=== PATIENT | female | born 1935 | race Caucasian/White ===

== ENCOUNTER → 2018-04-21 | Outpatient (CLI) | payer MEDICARE, OTHER | END | disposition home or self-care (01) | LOC: CFH 11:39 → EDSTATUS 12:00 | PROVIDERS: ATTEND Internal Medicine Cardiovascular Disease | DX: I08.1 Rheumatic disorders of both mitral and tricuspid valves (principal); I10 Essential (primary) hypertension; Z87.891 Personal history of nicotine dependence; Z85.6 Personal history of leukemia | CPT/HCPCS: 93306 ==

== ENCOUNTER 2018-08-03 19:04 | Inpatient (IN) | payer MEDICARE, OTHER ==
[~2018-08-03] VITALS: Ht 162.6 cm; Wt 67.6 kg
[2018-08-03] MEDS ORDERED: SODIUM CHLORIDE FLUSH 10ML SYR IVF ONE ×2 (19:30→20:30)
[2018-08-03] MEDS ORDERED: AMIO200T42 PO (19:33)
[2018-08-03] MEDS ORDERED: D3 (19:39)
[2018-08-03] MEDS ORDERED: FISH OIL (19:39)
[2018-08-03] MEDS ORDERED: VERA240T86 PO (19:39)
[2018-08-03] MEDS ORDERED: ATOR10TA9 PO (19:39)
[2018-08-03] MEDS ORDERED: NIAC500T9 PO (19:39)
[2018-08-03] MEDS ORDERED: WARF2TAB99 PO (19:39)
[2018-08-03] MEDS ORDERED: FURO20TA3 PO (19:39)
[2018-08-03] MEDS ORDERED: POTASSIUM CL ER PO (19:39)
[2018-08-03] MEDS ORDERED: [UNRECOGNIZED DRUG - OTHER] (19:39)
[2018-08-03] MEDS ORDERED: METO-99 PO (19:39)
[2018-08-03 19:56] LABS: INTERNATIONAL NORMALIZED RATIO 1.76 (0.93-1.1); PROTHROMBIN TIME 18.1 Seconds (9.6-11.5)
[2018-08-03 20:01] LABS: ALANINE AMINOTRANSFERASE 137 U/L (12-78); ALBUMIN 3.2 g/dL (3.4-5.0); ANION GAP 8 mmol/L (5-15); CHLORIDE 102 mmol/L (98-107); CREATININE 1.81 mg/dL (0.55-1.02)
[2018-08-03 20:05] LABS: ALKALINE PHOSPHATASE 121 U/L (45-117); BILIRUBIN,TOTAL 0.8 mg/dL (0.2-1.0); TOTAL PROTEIN 6.2 g/dL (6.4-8.2); TROPONIN I < 0.015 ng/mL (0.000-0.045)
[2018-08-03 20:21] LABS: MEAN CORPUSCULAR HEMOGLOBIN 31.3 pg (27.0-34.8); MEAN CORPUSCULAR HGB CONC 32.8 g/dL (32.4-35.8); MEAN CORPUSCULAR VOLUME 95.5 fL (80-100); MEAN PLATELET VOLUME 8.5 fL (7.4-10.4); PLATELET COUNT 190 x10^3/uL (130-400); RED BLOOD COUNT 4.54 x10^6/uL (3.82-5.3); RED CELL DISTRIBUTION WIDTH 17.5 % (9.6-15.2)
[2018-08-03 20:23] LABS: MD YES
[2018-08-03 20:24] LABS: LYMPH#(MANUAL) 83.81 x10^3/uL (1-3.4); LYMPHS% (MANUAL) 92 % (22-44); MONOS#(MANUAL) 0.91 x10^3/uL (0.3-2.7); MONOS% (MANUAL) 1 % (2-9); SEG#(MANUAL) 6.38 x10^3/uL (1.8-6.8); SEGS% (MANUAL) 7 % (42-75)
[2018-08-03 20:31] LABS: <PLATELET ESTIMATE> ADEQUATE; <PLT MORPHOLOGY> NORMAL PLT MORPH; <RBC MORPHOLOGY> NORMAL
[2018-08-03] MEDS ORDERED: SODIUM BICARB 8.4%, 50ML SYRINGE ONE (21:21)
[2018-08-03] MEDS ORDERED: DEXTROSE 50%, 50ML SYRINGE ONE (21:21)
[2018-08-03] MEDS ORDERED: CALCIUM CHLORIDE 10%, 10ML SYR ONE (21:21)
[2018-08-03] MEDS ORDERED: FUROSEMIDE 40 MG/4 ML ONE (21:21)
[2018-08-03] MEDS ORDERED: CALCIUM CHLORIDE 10%, 10ML SYR IVPush ONE (21:30)
[2018-08-03] MEDS ORDERED: INSULIN REGULAR 100 UNITS/ML, 3ML VIAL IVPush ONE (21:30)
[2018-08-03] MEDS ORDERED: DEXTROSE 50%, 50ML SYRINGE IVPush ONE (21:30)
[2018-08-03] MEDS ORDERED: SODIUM BICARB 8.4%, 50ML SYRINGE IVPush ONE (21:30)
[2018-08-03] MEDS ORDERED: FUROSEMIDE 40 MG/4 ML IVPush ONE (21:30)
[2018-08-03] MEDS ORDERED: SODIUM CHLORIDE 0.9% 1,000 ML IV ONE (21:32)
[2018-08-03] MEDS ORDERED: morphine SULFATE 10 MG/ML, 1ML IVPush PRN (22:00)
[2018-08-03] MEDS ORDERED: PROMETHAZINE 25 MG/ML, 1ML IM PRN (22:00)
[2018-08-03] MEDS ORDERED: GABAPENTIN 300 MG CAPSULE PO PRN (22:00)
[2018-08-03] MEDS ORDERED: BISACODYL 10 MG SUPP PR PRN (22:00)
[2018-08-03] MEDS ORDERED: POLYETHYLENE GLYCOL 17 GM PACKET PO PRN (22:00)
[2018-08-03] MEDS ORDERED: ONDANSETRON ODT 4 MG PO PRN (22:00)
[2018-08-03] MEDS ORDERED: SODIUM CHLORIDE FLUSH 10ML SYR IVF PRN (22:00)
[2018-08-03] MEDS ORDERED: ONDANSETRON 2MG/ML, 2ML IVPush PRN (22:00)
[2018-08-03] MEDS ORDERED: LABETALOL 5MG/ML, 20ML IVPush PRN (22:00)
[2018-08-03] MEDS ORDERED: hydrALAzine 20 MG/ML, 1ML IVPush PRN (22:00)
[2018-08-03] MEDS ORDERED: OXYcodone IR 5MG TABLET PO PRN (22:00)
[2018-08-03 22:25] LABS: HEMOGLOBIN A1C 5.9 % (4.2-6.3)
[2018-08-03 22:27] LABS: ANION GAP 9 mmol/L (5-15); CALCIUM 8.6 mg/dL (8.5-10.1); CHLORIDE 102 mmol/L (98-107); CREATININE 1.75 mg/dL (0.55-1.02)
[2018-08-03 22:33] VITALS: BP 131/81
[2018-08-03 22:37] LABS: FREE T4 (FREE THYROXINE) 0.99 ng/dL (0.76-1.46)
[2018-08-03] MEDS: D5%-0.9% NACL 1,000 ML IV SCH (23:41)
[2018-08-03] MEDS: ATORVASTATIN 10 MG TABLET PO SCH (23:41)
[2018-08-04 02:18] VITALS: BP 93/57
[2018-08-04 05:12] VITALS: BP_SYST 95; BP_SYST 97; BP_DIAS 61
[2018-08-04 05:27] LABS: CHLORIDE 104 mmol/L (98-107); MEAN CORPUSCULAR HEMOGLOBIN 31.7 pg (27.0-34.8); MEAN CORPUSCULAR HGB CONC 33.5 g/dL (32.4-35.8); MEAN CORPUSCULAR VOLUME 94.8 fL (80-100); MEAN PLATELET VOLUME 8.4 fL (7.4-10.4); PLATELET COUNT 157 x10^3/uL (130-400); RED BLOOD COUNT 3.97 x10^6/uL (3.82-5.3); RED CELL DISTRIBUTION WIDTH 17.3 % (9.6-15.2)
[2018-08-04 05:33] LABS: ALANINE AMINOTRANSFERASE 118 U/L (12-78); ALBUMIN 2.6 g/dL (3.4-5.0); ALKALINE PHOSPHATASE 100 U/L (45-117); ANION GAP 7 mmol/L (5-15); BILIRUBIN,TOTAL 1.1 mg/dL (0.2-1.0); CALCIUM 8.1 mg/dL (8.5-10.1); CREATININE 1.46 mg/dL (0.55-1.02); TOTAL PROTEIN 5.2 g/dL (6.4-8.2); TRIGLYCERIDES 64 mg/dL (50-200)
[2018-08-04 05:34] LABS: CHOL/HDL RATIO 2.7; CHOLESTEROL, TOTAL 98 mg/dL (140-239); HDL CHOL % 37 % (28-40); HDL CHOLESTEROL (DIRECT) 36 mg/dL (40-60); LDL CHOLESTEROL,CALCULATED 49 mg/dL (54-169); LDL/HDL RATIO 1.4 (0.5-3.0); VLDL CHOLESTEROL 13 mg/dL (0-25)
[2018-08-04 06:07] LABS: MD YES
[2018-08-04 06:08] LABS: SEG#(MANUAL) 5.16 x10^3/uL (1.8-6.8); SEGS% (MANUAL) 8 % (42-75)
[2018-08-04 06:09] LABS: LYMPH#(MANUAL) 58.05 x10^3/uL (1-3.4); LYMPHS% (MANUAL) 90 % (22-44); MONOS#(MANUAL) 1.29 x10^3/uL (0.3-2.7); MONOS% (MANUAL) 2 % (2-9)
[2018-08-04 06:10] LABS: SMUDGE CELLS 3+
[2018-08-04 06:11] LABS: <PLATELET ESTIMATE> ADEQUATE; <PLT MORPHOLOGY> NORMAL PLT MORPH; <RBC MORPHOLOGY> NORMAL
[2018-08-04 07:05] VITALS: BP 93/53
[2018-08-04 08:47] VITALS: BP 118/60
[2018-08-04] MEDS: VERAPAMIL ER 240MG TABLET.ER PO SCH (08:48)
[2018-08-04] MEDS: METOPROLOL TARTRATE 25 MG TABLET PO SCH ×2 (08:48→20:12)
[2018-08-04] MEDS: SENNA/DOCUSATE TABLET PO SCH (08:48)
[2018-08-04] MEDS: AMIODARONE 200 MG TABLET PO SCH (08:49)
[2018-08-04] MEDS ORDERED: FLUMAZENIL 0.1 MG/1 ML, 5ML ONE (09:29)
[2018-08-04] MEDS ORDERED: MIDAZOLAM 1 MG/ML, 5ML ONE (09:29)
[2018-08-04] MEDS ORDERED: FENTANYL PF 100 MCG/2ML ONE (09:29)
[2018-08-04] MEDS ORDERED: NALOXONE 1 MG/ML, 2ML ONE (09:30)
[2018-08-04] MEDS ORDERED: LIDOCAINE-MPF 2%, 2ML ONE (09:40)
[2018-08-04] MEDS: D5%-0.9% NACL 1,000 ML IV SCH (11:43)
[2018-08-04 13:05] VITALS: BP 95/51
[2018-08-04] MEDS ORDERED: LOSA100T7 PO (15:56)
[2018-08-04] MEDS ORDERED: FOLI-17 PO (15:56)
[2018-08-04] MEDS ORDERED: SPIR25TA5 PO (15:56)
[2018-08-04] MEDS ORDERED: LEVO25TA4 PO (15:56)
[2018-08-04 18:49] VITALS: BP 106/67
[2018-08-04] MEDS: NIACIN 500 MG TABLET.ER PO SCH (20:12)
[2018-08-04] MEDS: ATORVASTATIN 10 MG TABLET PO SCH (20:12)
[2018-08-05 04:00] VITALS: BP 90/52
[2018-08-05 05:16] LABS: INTERNATIONAL NORMALIZED RATIO 2.07 (0.93-1.1); PROTHROMBIN TIME 21.2 Seconds (9.6-11.5)
[2018-08-05 06:36] VITALS: BP 93/59
[2018-08-05] MEDS: VERAPAMIL ER 240MG TABLET.ER PO SCH (09:00)
[2018-08-05] MEDS: AMIODARONE 200 MG TABLET PO SCH (09:01)
[2018-08-05] MEDS: METOPROLOL TARTRATE 25 MG TABLET PO SCH ×2 (09:01→21:17)
[2018-08-05] MEDS: SENNA/DOCUSATE TABLET PO SCH (09:01)
[2018-08-05 09:19] VITALS: BP 125/55
[2018-08-05] MEDS ORDERED: HEPARIN 5,000 UNITS/ML, 1ML SQ SCH (10:00)
[2018-08-05] MEDS ORDERED: HEPARIN 5,000 UNITS/ML, 1ML IV ONE (10:30)
[2018-08-05] MEDS ORDERED: HEPARIN 5,000 UNITS/ML, 1ML IV PRN ×2 (10:30→17:30)
[2018-08-05] MEDS ORDERED: HEPARIN 25,000 UNITS/500ML PMX 500 ML IV PRN ×2 (10:30→17:30)
[2018-08-05 11:44] LABS: ALANINE AMINOTRANSFERASE 101 U/L (12-78); ALBUMIN 2.3 g/dL (3.4-5.0); ANION GAP 8 mmol/L (5-15); CALCIUM 7.7 mg/dL (8.5-10.1); CHLORIDE 108 mmol/L (98-107); CREATININE 1.01 mg/dL (0.55-1.02)
[2018-08-05 11:46] LABS: ALKALINE PHOSPHATASE 87 U/L (45-117); TOTAL PROTEIN 4.8 g/dL (6.4-8.2)
[2018-08-05 11:54] LABS: MEAN CORPUSCULAR HEMOGLOBIN 31.7 pg (27.0-34.8); MEAN CORPUSCULAR HGB CONC 33.6 g/dL (32.4-35.8); MEAN CORPUSCULAR VOLUME 94.5 fL (80-100); MEAN PLATELET VOLUME 8.8 fL (7.4-10.4); PLATELET COUNT 134 x10^3/uL (130-400); RED BLOOD COUNT 3.69 x10^6/uL (3.82-5.3); RED CELL DISTRIBUTION WIDTH 17.1 % (9.6-15.2)
[2018-08-05 11:57] LABS: MD YES
[2018-08-05 12:00] LABS: <RBC MORPHOLOGY> NORMAL; EOS#(MANUAL) 0.52 x10^3/uL (0.0-0.4); EOS% (MANUAL) 1 % (1-7); LYMPH#(MANUAL) 46.96 x10^3/uL (1-3.4); LYMPHS% (MANUAL) 91 % (22-44); MONOS#(MANUAL) 1.03 x10^3/uL (0.3-2.7); MONOS% (MANUAL) 2 % (2-9); SEGS% (MANUAL) 6 % (42-75)
[2018-08-05 12:02] LABS: <PLATELET ESTIMATE> ADEQUATE; <PLT MORPHOLOGY> NORMAL PLT MORPH
[2018-08-05 12:03] LABS: SMUDGE CELLS 3+
[2018-08-05 13:30] VITALS: BP 107/51
[2018-08-05 19:23] VITALS: BP 114/72
[2018-08-05] MEDS: NIACIN 500 MG TABLET.ER PO SCH (21:17)
[2018-08-05] MEDS: ATORVASTATIN 10 MG TABLET PO SCH (21:17)
[2018-08-06 03:57] VITALS: BP 121/70
[2018-08-06 05:22] LABS: MEAN CORPUSCULAR HEMOGLOBIN 31.6 pg (27.0-34.8); MEAN CORPUSCULAR HGB CONC 33.4 g/dL (32.4-35.8); MEAN CORPUSCULAR VOLUME 94.6 fL (80-100); MEAN PLATELET VOLUME 8.5 fL (7.4-10.4); PLATELET COUNT 125 x10^3/uL (130-400); RED BLOOD COUNT 3.76 x10^6/uL (3.82-5.3); RED CELL DISTRIBUTION WIDTH 17.5 % (9.6-15.2)
[2018-08-06 05:24] LABS: INTERNATIONAL NORMALIZED RATIO 1.72 (0.93-1.1); PROTHROMBIN TIME 17.7 Seconds (9.6-11.5)
[2018-08-06 05:30] LABS: ALBUMIN 2.3 g/dL (3.4-5.0); ANION GAP 8 mmol/L (5-15); CALCIUM 7.9 mg/dL (8.5-10.1); CHLORIDE 105 mmol/L (98-107)
[2018-08-06 05:35] LABS: ALANINE AMINOTRANSFERASE 83 U/L (12-78); ALKALINE PHOSPHATASE 94 U/L (45-117); BILIRUBIN,TOTAL 1.3 mg/dL (0.2-1.0); TOTAL PROTEIN 4.8 g/dL (6.4-8.2)
[2018-08-06 05:45] LABS: MD YES
[2018-08-06 05:55] LABS: <PLATELET ESTIMATE> ADEQUATE; <PLT MORPHOLOGY> NORMAL PLT MORPH; <RBC MORPHOLOGY> NORMAL; LYMPH#(MANUAL) 51.07 x10^3/uL (1-3.4); LYMPHS% (MANUAL) 96 % (22-44); SEG#(MANUAL) 2.13 x10^3/uL (1.8-6.8); SEGS% (MANUAL) 4 % (42-75)
[2018-08-06 05:56] LABS: SMUDGE CELLS 3+
[2018-08-06] MEDS: METOPROLOL TARTRATE 25 MG TABLET PO SCH ×2 (06:24→17:45)
[2018-08-06 07:17] VITALS: BP 134/67
[2018-08-06] MEDS ORDERED: FENTANYL PF 250 MCG/5ML ONE (07:51)
[2018-08-06] MEDS ORDERED: MIDAZOLAM 1 MG/ML, 2ML ONE (07:51)
[2018-08-06] MEDS ORDERED: ROCURONIUM 10MG/ML,5ML ONE (07:52)
[2018-08-06] MEDS ORDERED: PROPOFOL 10 MG/ML, 20ML ONE (07:52)
[2018-08-06] MEDS ORDERED: LIDOCAINE-MPF 2% ,5ML ONE (07:52)
[2018-08-06] MEDS ORDERED: WATER-INJECTION,STERILE 10 ML IV ONE (07:54)
[2018-08-06] MEDS ORDERED: CEFAZOLIN 1,000 MG ONE ×2 (07:54)
[2018-08-06] MEDS ORDERED: TRANEXAMIC ACID 100 MG/ML, 10ML ONE ×2 (07:57)
[2018-08-06] MEDS ORDERED: BUPIVACAINE/PF-EPI 0.5% 1:200K ONE (07:57)
[2018-08-06] MEDS ORDERED: BACITRACIN 50,000 UNIT ONE (07:58)
[2018-08-06] MEDS ORDERED: BACITRACIN OINT 500U/GM, 15 GM ONE (07:58)
[2018-08-06] MEDS ORDERED: OXYcodone 5 MG/5 ML ORAL.SOL UDC PO PRN ×2 (08:30→17:00)
[2018-08-06] MEDS ORDERED: HALOPERIDOL 5 MG/ML IV PRN (08:30)
[2018-08-06] MEDS ORDERED: ACETAMINOPHEN 325 MG TABLET PO PRN (08:30)
[2018-08-06] MEDS ORDERED: ONDANSETRON ODT 8 MG PO PRN (08:30)
[2018-08-06] MEDS ORDERED: hydrALAzine 20 MG/ML, 1ML IV PRN (08:30)
[2018-08-06] MEDS ORDERED: FENTANYL PF 100 MCG/2ML IV PRN (08:30)
[2018-08-06] MEDS ORDERED: MEPERIDINE/PF 25MG/0.5ML IVPush PRN (08:30)
[2018-08-06] MEDS ORDERED: HYDROmorphone 1 MG/ML, 1ML IV PRN (08:30)
[2018-08-06] MEDS ORDERED: LABETALOL 5MG/ML, 20ML IV PRN (08:30)
[2018-08-06] MEDS ORDERED: DEXAMETHASONE 4 MG/ML, 1ML ONE ×2 (08:36)
[2018-08-06] MEDS ORDERED: ONDANSETRON 2MG/ML, 2ML ONE ×2 (08:53)
[2018-08-06] MEDS: VERAPAMIL ER 240MG TABLET.ER PO SCH (09:00)
[2018-08-06] MEDS: SENNA/DOCUSATE TABLET PO SCH (09:00)
[2018-08-06] MEDS: AMIODARONE 200 MG TABLET PO SCH (09:00)
[2018-08-06] MEDS ORDERED: OXYcodone 5 MG/5 ML ORAL.SOL UDC ONE (09:36)
[2018-08-06] MEDS ORDERED: hydrALAzine 20 MG/ML, 1ML ONE (09:44)
[2018-08-06] MEDS ORDERED: FENTANYL PF 100 MCG/2ML ONE (09:44)
[2018-08-06] MEDS ORDERED: WARFARIN 3 MG TABLET PO-COUM ONE ×2 (11:00→18:00)
[2018-08-06] MEDS ORDERED: NEOSTIGMINE 1 MG/ML, 10ML ONE (11:23)
[2018-08-06] MEDS ORDERED: GLYCOPYRROLATE 0.2MG/1ML, 5ML ONE (11:23)
[2018-08-06 12:49] VITALS: BP 116/54
[2018-08-06] MEDS ORDERED: BISACODYL 10 MG SUPP PR PRN (17:00)
[2018-08-06] MEDS ORDERED: ONDANSETRON ODT 4 MG PO PRN (17:00)
[2018-08-06] MEDS ORDERED: ALUMINUM/MAG/SIMETHICONE 30 ML UDC PO PRN (17:00)
[2018-08-06] MEDS ORDERED: morphine SULFATE 10 MG/ML, 1ML IV PRN (17:00)
[2018-08-06] MEDS ORDERED: DIPHENHYDRAMINE 25 MG CAPSULE PO PRN (17:00)
[2018-08-06] MEDS ORDERED: MAGNESIUM HYDROXIDE 8%, 30ML UDC PO PRN (17:00)
[2018-08-06] MEDS ORDERED: ONDANSETRON 2MG/ML, 2ML IVPush PRN (17:00)
[2018-08-06] MEDS: SCOPOLAMINE PATCH, 1.5MG PATCH.TD72 TD SCH (17:00)
[2018-08-06] MEDS ORDERED: SENNA/DOCUSATE TABLET PO PRN (17:30)
[2018-08-06] MEDS: CEFAZOLIN PMX 1GM/50ML 50 ML IVPB SCH (17:45)
[2018-08-06] MEDS: SODIUM CHLORIDE 0.9% 1,000 ML IV SCH (17:45)
[2018-08-06 21:23] VITALS: BP 109/74
[2018-08-06] MEDS: NIACIN 500 MG TABLET.ER PO SCH (21:30)
[2018-08-06] MEDS: ATORVASTATIN 10 MG TABLET PO SCH (21:30)
[2018-08-06] MEDS: SODIUM CHLORIDE FLUSH 10ML SYR IVF SCH (21:30)
[2018-08-06] MEDS: DOCUSATE 100 MG CAPSULE PO SCH (21:30)
[2018-08-07] MEDS: CEFAZOLIN PMX 1GM/50ML 50 ML IVPB SCH (01:50)
[2018-08-07 02:22] VITALS: BP 150/70
[2018-08-07] MEDS: METOPROLOL TARTRATE 25 MG TABLET PO SCH ×2 (05:55→17:27)
[2018-08-07] MEDS ORDERED: DEXAMETHASONE 10 MG in SODIUM CHLORIDE 0.9% 50 ML IV ONE (06:00)
[2018-08-07] MEDS: SODIUM CHLORIDE 0.9% 1,000 ML IV SCH (06:50)
[2018-08-07 07:48] VITALS: BP 119/70
[2018-08-07 08:50] LABS: INTERNATIONAL NORMALIZED RATIO 1.69 (0.93-1.1); PROTHROMBIN TIME 17.4 Seconds (9.6-11.5)
[2018-08-07] MEDS: SODIUM CHLORIDE FLUSH 10ML SYR IVF SCH ×2 (09:00→21:50)
[2018-08-07] MEDS: AMIODARONE 200 MG TABLET PO SCH (09:45)
[2018-08-07] MEDS: VERAPAMIL ER 240MG TABLET.ER PO SCH (09:45)
[2018-08-07] MEDS: DOCUSATE 100 MG CAPSULE PO SCH ×2 (09:45→21:49)
[2018-08-07 13:45] VITALS: BP 136/71
[2018-08-07] MEDS ORDERED: WARFARIN 5 MG TABLET PO-COUM ONE (18:00)
[2018-08-07] MEDS: ATORVASTATIN 10 MG TABLET PO SCH (21:49)
[2018-08-07] MEDS: NIACIN 500 MG TABLET.ER PO SCH (21:49)
[2018-08-08] VITALS (8 sets, daily range): BP systolic 94–110; BP diastolic 44–69
[2018-08-08] MEDS: METOPROLOL TARTRATE 25 MG TABLET PO SCH ×2 (05:47→17:58)
[2018-08-08] MEDS: DOCUSATE 100 MG CAPSULE PO SCH ×2 (08:52→22:55)
[2018-08-08] MEDS: AMIODARONE 200 MG TABLET PO SCH (08:52)
[2018-08-08] MEDS: ACETAMINOPHEN 325 MG TABLET PO PRN ×2 (08:53→13:47)
[2018-08-08] MEDS: SODIUM CHLORIDE FLUSH 10ML SYR IVF SCH ×2 (09:00→22:55)
[2018-08-08 09:36] LABS: INTERNATIONAL NORMALIZED RATIO 3.29 (0.93-1.1); PROTHROMBIN TIME 33.4 Seconds (9.6-11.5)
[2018-08-08] MEDS: VERAPAMIL ER 240MG TABLET.ER PO SCH (12:02)
[2018-08-08] MEDS ORDERED: MAGN400O7 PO (15:50)
[2018-08-08] MEDS ORDERED: GABA300C10 PO (15:50)
[2018-08-08] MEDS ORDERED: ACET325T14 PO (15:50)
[2018-08-08] MEDS ORDERED: DOCU-131 PO (15:50)
[2018-08-08] MEDS ORDERED: WARF2TAB99 PO (15:50)
[2018-08-08] MEDS ORDERED: ONDANSETRON ODT 8 MG PO PRN (20:30)
[2018-08-08] MEDS ORDERED: ACETAMINOPHEN 325 MG TABLET PO PRN (20:30)
[2018-08-08] MEDS ORDERED: FENTANYL PF 100 MCG/2ML IV PRN (20:30)
[2018-08-08] MEDS ORDERED: OXYcodone 5 MG/5 ML ORAL.SOL UDC PO PRN (20:30)
[2018-08-08] MEDS ORDERED: PROMETHAZINE 25 MG/ML, 1ML IV PRN (20:30)
[2018-08-08] MEDS ORDERED: MORPHINE SULFATE 4 MG/ML, 1ML IVPush PRN (20:30)
[2018-08-08] MEDS ORDERED: ONDANSETRON 2MG/ML, 2ML IV PRN (20:30)
[2018-08-08] MEDS ORDERED: VANCOMYCIN 1,000 MG ONE (20:41)
[2018-08-08] MEDS ORDERED: FENTANYL PF 100 MCG/2ML ONE (20:44)
[2018-08-08] MEDS ORDERED: DEXAMETHASONE 4 MG/ML, 1ML ONE (21:21)
[2018-08-08] MEDS ORDERED: NEOSTIGMINE 1 MG/ML, 10ML ONE (21:21)
[2018-08-08] MEDS ORDERED: ROCURONIUM 10MG/ML,5ML ONE (21:21)
[2018-08-08] MEDS ORDERED: PROPOFOL 10 MG/ML, 20ML ONE (21:21)
[2018-08-08] MEDS ORDERED: SUCCINYLCHOLINE 20 MG/ML, 10ML ONE (21:21)
[2018-08-08] MEDS ORDERED: GLYCOPYRROLATE 0.2MG/1ML, 5ML ONE (21:21)
[2018-08-08] MEDS ORDERED: ONDANSETRON 2MG/ML, 2ML ONE (21:21)
[2018-08-08] MEDS ORDERED: CEFAZOLIN 1,000 MG ONE (21:21)
[2018-08-08] MEDS ORDERED: OXYcodone 5 MG/5 ML ORAL.SOL UDC ONE (22:07)
[2018-08-08] MEDS: NIACIN 500 MG TABLET.ER PO SCH (22:55)
[2018-08-08] MEDS: ATORVASTATIN 10 MG TABLET PO SCH (22:55)
[2018-08-09 01:26] VITALS: BP 104/63
[2018-08-09] MEDS: HYDROcodone/APAP 5/325 TABLET PO PRN ×2 (04:15→11:20)
[2018-08-09] MEDS: METOPROLOL TARTRATE 25 MG TABLET PO SCH ×2 (05:46→17:42)
[2018-08-09] MEDS: CEFAZOLIN PMX 2GM/50ML 50 ML IVPB SCH ×2 (05:59→15:22)
[2018-08-09 06:16] LABS: MD YES; MEAN CORPUSCULAR HEMOGLOBIN 31.4 pg (27.0-34.8); MEAN CORPUSCULAR HGB CONC 32.6 g/dL (32.4-35.8); MEAN CORPUSCULAR VOLUME 96.5 fL (80-100); MEAN PLATELET VOLUME 8.4 fL (7.4-10.4); PLATELET COUNT 149 x10^3/uL (130-400); RED BLOOD COUNT 2.68 x10^6/uL (3.82-5.3); RED CELL DISTRIBUTION WIDTH 17.1 % (9.6-15.2)
[2018-08-09 06:47] LABS: ALANINE AMINOTRANSFERASE 87 U/L (12-78); ALBUMIN 2.2 g/dL (3.4-5.0); ANION GAP 8 mmol/L (5-15); CALCIUM 7.7 mg/dL (8.5-10.1); CHLORIDE 99 mmol/L (98-107); CREATININE 0.95 mg/dL (0.55-1.02)
[2018-08-09 06:49] LABS: ALKALINE PHOSPHATASE 105 U/L (45-117); BILIRUBIN,TOTAL 0.9 mg/dL (0.2-1.0); INTERNATIONAL NORMALIZED RATIO 2.18 (0.93-1.1); PROTHROMBIN TIME 22.3 Seconds (9.6-11.5); TOTAL PROTEIN 5.3 g/dL (6.4-8.2)
[2018-08-09 06:55] LABS: <PLATELET ESTIMATE> ADEQUATE; <PLT MORPHOLOGY> NORMAL PLT MORPH; <RBC MORPHOLOGY> NORMAL; LYMPHS% (MANUAL) 95 % (22-44); MONOS% (MANUAL) 1 % (2-9); SEGS% (MANUAL) 4 % (42-75); SMUDGE CELLS 3+
[2018-08-09 07:30] LABS: LYMPH#(MANUAL) 79.04 x10^3/uL (1-3.4)
[2018-08-09 07:31] LABS: MONOS#(MANUAL) 0.83 x10^3/uL (0.3-2.7)
[2018-08-09 07:32] LABS: SEG#(MANUAL) 3.33 x10^3/uL (1.8-6.8)
[2018-08-09 08:01] VITALS: BP 94/60
[2018-08-09] MEDS: SODIUM CHLORIDE FLUSH 10ML SYR IVF SCH ×2 (09:00→21:53)
[2018-08-09 09:17] VITALS: BP 101/61
[2018-08-09] MEDS: DOCUSATE 100 MG CAPSULE PO SCH ×2 (09:18→21:51)
[2018-08-09] MEDS: AMIODARONE 200 MG TABLET PO SCH (09:18)
[2018-08-09 14:00] VITALS: BP 101/42
[2018-08-09] MEDS: SCOPOLAMINE PATCH, 1.5MG PATCH.TD72 TD SCH (17:51)
[2018-08-09] MEDS ORDERED: WARFARIN 2 MG TABLET PO-COUM ONE (18:00)
[2018-08-09 19:00] VITALS: BP 104/64
[2018-08-09] MEDS: NIACIN 500 MG TABLET.ER PO SCH (21:51)
[2018-08-09] MEDS: CLINDAMYCIN 300 MG CAPSULE PO SCH (21:51)
[2018-08-09] MEDS: ATORVASTATIN 10 MG TABLET PO SCH (21:51)
[2018-08-10 01:36] VITALS: BP 103/68
[2018-08-10 05:25] LABS: INTERNATIONAL NORMALIZED RATIO 1.84 (0.93-1.1); PROTHROMBIN TIME 18.9 Seconds (9.6-11.5)
[2018-08-10] MEDS: METOPROLOL TARTRATE 25 MG TABLET PO SCH ×2 (05:49→18:29)
[2018-08-10 07:29] LABS: ANION GAP 7 mmol/L (5-15); CALCIUM 7.9 mg/dL (8.5-10.1); CHLORIDE 100 mmol/L (98-107); CREATININE 0.96 mg/dL (0.55-1.02)
[2018-08-10 08:00] VITALS: BP 117/70
[2018-08-10 09:31] LABS: BILIRUBIN, DIRECT 0.4 mg/dL (0.1-0.2)
[2018-08-10 09:33] LABS: BILIRUBIN,INDIRECT 0.6 mg/dL (0.0-2.0)
[2018-08-10] MEDS: DOCUSATE 100 MG CAPSULE PO SCH ×2 (09:38→22:15)
[2018-08-10] MEDS: AMIODARONE 200 MG TABLET PO SCH (09:39)
[2018-08-10] MEDS: VERAPAMIL ER 240MG TABLET.ER PO SCH (09:39)
[2018-08-10] MEDS: SODIUM CHLORIDE FLUSH 10ML SYR IVF SCH ×2 (09:39→22:15)
[2018-08-10] MEDS: CLINDAMYCIN 300 MG CAPSULE PO SCH ×3 (09:39→22:15)
[2018-08-10 13:29] VITALS: BP 111/64
[2018-08-10] MEDS ORDERED: KETOROLAC 30 MG/1 ML IM PRN (17:00)
[2018-08-10] MEDS ORDERED: WARFARIN 2.5 MG TABLET PO-COUM ONE (18:00)
[2018-08-10 19:36] VITALS: BP 118/71
[2018-08-10] MEDS: ATORVASTATIN 10 MG TABLET PO SCH (22:15)
[2018-08-10] MEDS: NIACIN 500 MG TABLET.ER PO SCH (22:15)
[2018-08-11] VITALS (7 sets, daily range): BP systolic 94–113; BP diastolic 50–67
[2018-08-11 04:11] LABS: CULTURE INDICATED? YES; MICROSCOPIC INDICATED
[2018-08-11 05:54] LABS: ALBUMIN 1.9 g/dL (3.4-5.0); ANION GAP 7 mmol/L (5-15); CHLORIDE 101 mmol/L (98-107)
[2018-08-11 05:57] LABS: ALANINE AMINOTRANSFERASE 72 U/L (12-78); ALKALINE PHOSPHATASE 105 U/L (45-117); BILIRUBIN,TOTAL 1.4 mg/dL (0.2-1.0); CREATININE 0.83 mg/dL (0.55-1.02); TOTAL PROTEIN 4.7 g/dL (6.4-8.2)
[2018-08-11] MEDS: SODIUM CHLORIDE FLUSH 10ML SYR IVF SCH ×2 (09:00→21:05)
[2018-08-11 09:28] LABS: INTERNATIONAL NORMALIZED RATIO 1.55 (0.93-1.1)
[2018-08-11 09:29] LABS: MEAN CORPUSCULAR HEMOGLOBIN 31.5 pg (27.0-34.8); MEAN CORPUSCULAR HGB CONC 32.7 g/dL (32.4-35.8); MEAN CORPUSCULAR VOLUME 96.4 fL (80-100); MEAN PLATELET VOLUME 7.6 fL (7.4-10.4); PLATELET COUNT 209 x10^3/uL (130-400); RED BLOOD COUNT 2.19 x10^6/uL (3.82-5.3); RED CELL DISTRIBUTION WIDTH 16.7 % (9.6-15.2)
[2018-08-11 09:33] LABS: MD YES
[2018-08-11 09:36] LABS: LYMPH#(MANUAL) 75.05 x10^3/uL (1-3.4); LYMPHS% (MANUAL) 93 % (22-44); MONOS#(MANUAL) 0.81 x10^3/uL (0.3-2.7); MONOS% (MANUAL) 1 % (2-9); SEG#(MANUAL) 4.84 x10^3/uL (1.8-6.8); SEGS% (MANUAL) 6 % (42-75)
[2018-08-11 09:37] LABS: ANISOCYTOSIS 1+; POLYCHROMASIA 1+; SMUDGE CELLS 3+
[2018-08-11 09:38] LABS: <PLATELET ESTIMATE> ADEQUATE; <PLT MORPHOLOGY> NORMAL PLT MORPH
[2018-08-11] MEDS: DOCUSATE 100 MG CAPSULE PO SCH ×2 (10:05→20:42)
[2018-08-11] MEDS: CLINDAMYCIN 300 MG CAPSULE PO SCH (10:05)
[2018-08-11] MEDS: AMIODARONE 200 MG TABLET PO SCH (10:06)
[2018-08-11] MEDS: VERAPAMIL ER 240MG TABLET.ER PO SCH (10:07)
[2018-08-11] MEDS: METOPROLOL TARTRATE 25 MG TABLET PO SCH ×2 (10:08→18:30)
[2018-08-11] MEDS ORDERED: VANCOMYCIN PER PHARMACY MC PRN (13:00)
[2018-08-11] MEDS ORDERED: PHARMACOKINETIC CONSULTATION MC ONE (13:00)
[2018-08-11] MEDS ORDERED: PHARMACOKINETIC MONITORING MC PRN (13:00)
[2018-08-11] MEDS: VANCOMYCIN 1,400 MG in SODIUM CHLORIDE 0.9% 250 ML IV SCH (15:18)
[2018-08-11] MEDS ORDERED: SODIUM CHLORIDE INHALATION 7%, 4 ML NPPB ONE (16:30)
[2018-08-11 17:49] LABS: BILIRUBIN, DIRECT 0.7 mg/dL (0.1-0.2)
[2018-08-11 17:52] LABS: BILIRUBIN,INDIRECT 1.2 mg/dL (0.0-2.0); BILIRUBIN,TOTAL 1.9 mg/dL (0.2-1.0)
[2018-08-11] MEDS ORDERED: WARFARIN 2 MG TABLET PO-COUM ONE (18:00)
[2018-08-11] MEDS: AMPICILLIN/SULBACTAM 3 GM in SODIUM CHLORIDE 0.9% 100 ML IV SCH (18:30)
[2018-08-11 19:43] LABS: D-DIMER 1.38 ug/mlFEU (0.00-0.52)
[2018-08-11] MEDS: NIACIN 500 MG TABLET.ER PO SCH (21:05)
[2018-08-11] MEDS: PANTOPRAZOLE 40 MG IV IVPush SCH (21:05)
[2018-08-12 01:37] VITALS: BP 119/63
[2018-08-12] MEDS: AMPICILLIN/SULBACTAM 3 GM in SODIUM CHLORIDE 0.9% 100 ML IV SCH ×3 (02:48→17:36)
[2018-08-12 07:28] LABS: RED BLOOD COUNT 2.86 x10^6/uL (3.82-5.3)
[2018-08-12 07:29] LABS: ALANINE AMINOTRANSFERASE 107 U/L (12-78); ALBUMIN 1.7 g/dL (3.4-5.0); ANION GAP 8 mmol/L (5-15); CALCIUM 7.6 mg/dL (8.5-10.1); CHLORIDE 104 mmol/L (98-107); CREATININE 0.71 mg/dL (0.55-1.02); MEAN CORPUSCULAR HGB CONC 31.6 g/dL (32.4-35.8); MEAN CORPUSCULAR VOLUME 91.7 fL (80-100); MEAN PLATELET VOLUME 8.2 fL (7.4-10.4); PLATELET COUNT 216 x10^3/uL (130-400); RED CELL DISTRIBUTION WIDTH 22.3 % (9.6-15.2)
[2018-08-12 07:30] LABS: MD YES
[2018-08-12 07:31] LABS: ALKALINE PHOSPHATASE 93 U/L (45-117); BILIRUBIN,TOTAL 1.1 mg/dL (0.2-1.0); TOTAL PROTEIN 4.4 g/dL (6.4-8.2)
[2018-08-12 07:43] LABS: EOS#(MANUAL) 0.77 x10^3/uL (0.0-0.4); EOS% (MANUAL) 1 % (1-7); SEG#(MANUAL) 3.08 x10^3/uL (1.8-6.8); SEGS% (MANUAL) 4 % (42-75)
[2018-08-12 07:46] LABS: <PLATELET ESTIMATE> ADEQUATE; <PLT MORPHOLOGY> NORMAL PLT MORPH; ANISOCYTOSIS 1+; LYMPHS% (MANUAL) 94 % (22-44); MONOS#(MANUAL) 0.77 x10^3/uL (0.3-2.7); MONOS% (MANUAL) 1 % (2-9); POLYCHROMASIA 1+; SMUDGE CELLS 3+
[2018-08-12 07:55] VITALS: BP 105/59
[2018-08-12 08:00] LABS: INTERNATIONAL NORMALIZED RATIO 1.54 (0.93-1.1); PROTHROMBIN TIME 15.9 Seconds (9.6-11.5)
[2018-08-12] MEDS: AMIODARONE 200 MG TABLET PO SCH (08:37)
[2018-08-12] MEDS: METOPROLOL TARTRATE 25 MG TABLET PO SCH ×2 (08:37→17:36)
[2018-08-12] MEDS: VERAPAMIL ER 240MG TABLET.ER PO SCH (08:40)
[2018-08-12] MEDS: DOCUSATE 100 MG CAPSULE PO SCH ×2 (08:40→22:26)
[2018-08-12] MEDS: PANTOPRAZOLE 40 MG IV IVPush SCH (08:40)
[2018-08-12] MEDS: SODIUM CHLORIDE FLUSH 10ML SYR IVF SCH ×2 (08:41→22:26)
[2018-08-12 13:25] VITALS: BP 118/64
[2018-08-12] MEDS ORDERED: WARFARIN 2 MG TABLET PO-COUM ONE (18:00)
[2018-08-12 19:08] VITALS: BP 106/61
[2018-08-12 20:52] LABS: MICROSCOPIC NOT IND
[2018-08-12 20:54] LABS: CULTURE INDICATED? NO
[2018-08-12] MEDS: NIACIN 500 MG TABLET.ER PO SCH (22:26)
[2018-08-13] VITALS (7 sets, daily range): BP systolic 103–131; BP diastolic 50–66
[2018-08-13] MEDS: AMPICILLIN/SULBACTAM 3 GM in SODIUM CHLORIDE 0.9% 100 ML IV SCH ×3 (02:12→17:34)
[2018-08-13] MEDS: VANCOMYCIN 1,400 MG in SODIUM CHLORIDE 0.9% 250 ML IV SCH (03:28)
[2018-08-13 05:52] LABS: CHLORIDE 106 mmol/L (98-107)
[2018-08-13 05:54] LABS: MEAN CORPUSCULAR HEMOGLOBIN 29.4 pg (27.0-34.8); MEAN CORPUSCULAR HGB CONC 31.9 g/dL (32.4-35.8); MEAN CORPUSCULAR VOLUME 92.1 fL (80-100); MEAN PLATELET VOLUME 7.6 fL (7.4-10.4); PLATELET COUNT 244 x10^3/uL (130-400); RED BLOOD COUNT 2.73 x10^6/uL (3.82-5.3)
[2018-08-13 05:57] LABS: ALANINE AMINOTRANSFERASE 77 U/L (12-78); ALBUMIN 1.4 g/dL (3.4-5.0); ALKALINE PHOSPHATASE 101 U/L (45-117); ANION GAP 7 mmol/L (5-15); CALCIUM 7.3 mg/dL (8.5-10.1); CREATININE 0.69 mg/dL (0.55-1.02); TOTAL PROTEIN 4.1 g/dL (6.4-8.2)
[2018-08-13 06:17] LABS: INTERNATIONAL NORMALIZED RATIO 1.79 (0.93-1.1); PROTHROMBIN TIME 18.4 Seconds (9.6-11.5)
[2018-08-13] MEDS: METOPROLOL TARTRATE 25 MG TABLET PO SCH ×2 (06:20→17:36)
[2018-08-13 06:29] LABS: MD YES
[2018-08-13 06:31] LABS: <PLATELET ESTIMATE> ADEQUATE; <PLT MORPHOLOGY> NORMAL PLT MORPH; ANISOCYTOSIS 1+; LYMPH#(MANUAL) 74.59 x10^3/uL (1-3.4); LYMPHS% (MANUAL) 97 % (22-44); POLYCHROMASIA 1+; SEG#(MANUAL) 2.31 x10^3/uL (1.8-6.8); SEGS% (MANUAL) 3 % (42-75)
[2018-08-13] MEDS: DOCUSATE 100 MG CAPSULE PO SCH ×2 (08:59→20:48)
[2018-08-13] MEDS: VERAPAMIL ER 240MG TABLET.ER PO SCH (08:59)
[2018-08-13] MEDS: AMIODARONE 200 MG TABLET PO SCH (08:59)
[2018-08-13] MEDS: PANTOPRAZOLE 40 MG IV IVPush SCH (08:59)
[2018-08-13] MEDS: SODIUM CHLORIDE FLUSH 10ML SYR IVF SCH ×2 (09:00→20:49)
[2018-08-13] MEDS ORDERED: WARFARIN 2 MG TABLET PO-COUM ONE (18:00)
[2018-08-13] MEDS: NIACIN 500 MG TABLET.ER PO SCH (20:48)
[2018-08-14] MEDS: AMPICILLIN/SULBACTAM 3 GM in SODIUM CHLORIDE 0.9% 100 ML IV SCH ×2 (01:35→11:48)
[2018-08-14 02:04] VITALS: BP 111/71
[2018-08-14 04:55] VITALS: BP 112/52
[2018-08-14] MEDS: METOPROLOL TARTRATE 25 MG TABLET PO SCH ×2 (04:57→17:58)
[2018-08-14 05:20] LABS: INTERNATIONAL NORMALIZED RATIO 2.18 (0.93-1.1); PROTHROMBIN TIME 22.1 Seconds (9.6-11.5)
[2018-08-14 08:00] VITALS: BP 121/68
[2018-08-14] MEDS: PANTOPRAZOLE 40 MG IV IVPush SCH (08:54)
[2018-08-14] MEDS: SODIUM CHLORIDE FLUSH 10ML SYR IVF SCH (08:55)
[2018-08-14] MEDS: DOCUSATE 100 MG CAPSULE PO SCH (08:55)
[2018-08-14] MEDS: AMIODARONE 200 MG TABLET PO SCH (08:55)
[2018-08-14] MEDS: VERAPAMIL ER 240MG TABLET.ER PO SCH (08:55)
[2018-08-14 12:13] VITALS: BP 112/63
[2018-08-14] MEDS ORDERED: PANT40VI IVPush (15:10)
[2018-08-14] MEDS ORDERED: WARF3TAB PO-COUM (15:10)
[2018-08-14] MEDS ORDERED: VERA240T86 PO (15:10)
[2018-08-14] MEDS ORDERED: AMOX1TAB64 PO (15:10)
[2018-08-14] MEDS ORDERED: METO25TA35 PO (15:10)
[2018-08-14] MEDS ORDERED: WARFARIN 3 MG TABLET PO-COUM SCH (18:00)
== END 2018-08-14 18:46 | DRG 466 ==
LOC: ED 20:59 → EDIP 21:35 → 5SO 22:28 → 4WST 08-09 13:50
PROVIDERS: ADMIT Internal Medicine; ATTEND Internal Medicine
PROC: 07DR3ZX Extraction of Iliac Bone Marrow, Percutaneous Approach, Diagnostic (ICD-10-PCS; 2018-08-04)
PROC: 0SRB02A Replacement of Left Hip Joint with Metal on Polyethylene Synthetic Substitute, Uncemented, Open Approach (ICD-10-PCS; principal; 2018-08-06 08:00)
PROC: 0SR Lower Joints, Replacement (ICD-10-PCS; 2018-08-08)
PROC: 0SPE0JZ Removal of Synthetic Substitute from Left Hip Joint, Acetabular Surface, Open Approach (ICD-10-PCS; 2018-08-08)
PROC: 30233L1 Transfusion of Nonautologous Fresh Plasma into Peripheral Vein, Percutaneous Approach (ICD-10-PCS; 2018-08-08)
PROC: 30233K1 Transfusion of Nonautologous Frozen Plasma into Peripheral Vein, Percutaneous Approach (ICD-10-PCS; 2018-08-08)
PROC: 30233N1 Transfusion of Nonautologous Red Blood Cells into Peripheral Vein, Percutaneous Approach (ICD-10-PCS; 2018-08-11)
DX: S72.032A Displaced midcervical fracture of left femur, initial encounter for closed fracture (principal); N17.0 Acute kidney failure with tubular necrosis; G93.41 Metabolic encephalopathy; I71.02 Dissection of abdominal aorta; J18.9 Pneumonia, unspecified organism; E44.0 Moderate protein-calorie malnutrition; D68.69 Other thrombophilia; C91.10 Chronic lymphocytic leukemia of B-cell type not having achieved remission; K92.2 Gastrointestinal hemorrhage, unspecified; T84.021A Dislocation of internal left hip prosthesis, initial encounter; I67.82 Cerebral ischemia; E87.5 Hyperkalemia; R74.8 Abnormal levels of other serum enzymes; I48.2 Chronic atrial fibrillation; I08.1 Rheumatic disorders of both mitral and tricuspid valves; M16.12 Unilateral primary osteoarthritis, left hip; K80.20 Calculus of gallbladder without cholecystitis without obstruction; K59.00 Constipation, unspecified; K86.89 Other specified diseases of pancreas; D50.0 Iron deficiency anemia secondary to blood loss (chronic); E78.00 Pure hypercholesterolemia, unspecified; E78.5 Hyperlipidemia, unspecified; H91.90 Unspecified hearing loss, unspecified ear; I10 Essential (primary) hypertension; I25.2 Old myocardial infarction; I48.0 Paroxysmal atrial fibrillation; Y95 Nosocomial condition; N27.0 Small kidney, unilateral; N28.1 Cyst of kidney, acquired; R29.6 Repeated falls; T45.515A Adverse effect of anticoagulants, initial encounter; Y92.129 Unspecified place in nursing home as the place of occurrence of the external cause; Y79.2 Prosthetic and other implants, materials and accessory orthopedic devices associated with adverse incidents; W01.198A Fall on same level from slipping, tripping and stumbling with subsequent striking against other object, initial encounter; Y93.89 Activity, other specified; Y99.8 Other external cause status; Z59.0 Homelessness; Z79.01 Long term (current) use of anticoagulants; Z79.4 Long term (current) use of insulin; Z86.73 Personal history of transient ischemic attack (TIA), and cerebral infarction without residual deficits; Z87.891 Personal history of nicotine dependence; Z95.0 Presence of cardiac pacemaker; R33.9 Retention of urine, unspecified; Z68.25 Body mass index [BMI] 25.0-25.9, adult
CPT/HCPCS: 36415; 38222; 70450; 71045; 71250; 72170; 72192; 74018; 74150; 74176; 74181; 77012; 80048; 80053; 80061; 80074; 80076; 81001; 81003; 82140; 82247; 82248; 82306; 82607; 82728; 82962; 83010; 83036; 83540; 83550; 83605; 83615; 83735; 84439; 84443; 84484; 84550; 85014; 85018; 85025; 85060; 85097; 85379; 85384; 85520; 85610; 85730; 86038; 86850; 86880; 86900; 86923; 87040; 87081; 87086; 88184; 88185; 88237; 88264; 88280; 88305; 88311; 88313; 88374; 93005; 94640; 96361; 96374; 96375; 99156; 99157; C1713; G0378; J0295; J0690; J1100; J1644; J1885; J1940; J2250; J2405; J2704; J2710; J3010; J3370; J3490; J7042; C1776; C9113; J0330; J2310; J7030; J7050; P9016; P9017; Q0163

== ENCOUNTER 2018-08-25 13:31 | Inpatient (IN) | payer MEDICARE, OTHER ==
[~2018-08-25] VITALS: Ht 160 cm; Wt 72.3 kg
[~2018-08-25 13:31] MED LIST: ACET325T14 PO; AMIO200T42 PO; AMOX1TAB64 PO; ATOR10TA9 PO; D3; DOCU-131 PO; FISH OIL; FOLI-17 PO; FURO20TA3 PO; GABA300C10 PO; LEVO25TA4 PO; LOSA100T7 PO; MAGN400O7 PO; METO-99 PO; METO25TA35 PO; NIAC500T9 PO; PANT40VI IVPush; POTASSIUM CL ER PO; SPIR25TA5 PO; VERA240T86 PO; WARF2TAB99 PO; WARF3TAB PO-COUM; [UNRECOGNIZED DRUG - OTHER]
[2018-08-25] MEDS ORDERED: MORPHINE SULFATE 4 MG/ML, 1ML IVPush PRN ×2 (14:00→18:00)
[2018-08-25 15:06] LABS: MEAN CORPUSCULAR HEMOGLOBIN 29.9 pg (27.0-34.8); MEAN CORPUSCULAR HGB CONC 31.9 g/dL (32.4-35.8); MEAN CORPUSCULAR VOLUME 93.7 fL (80-100); MEAN PLATELET VOLUME 7.8 fL (7.4-10.4); PLATELET COUNT 277 x10^3/uL (130-400); RED BLOOD COUNT 3.09 x10^6/uL (3.82-5.3); RED CELL DISTRIBUTION WIDTH 22.6 % (9.6-15.2)
[2018-08-25 15:07] LABS: ALBUMIN 2.1 g/dL (3.4-5.0); ANION GAP 6 mmol/L (5-15); CALCIUM 7.9 mg/dL (8.5-10.1); CHLORIDE 109 mmol/L (98-107)
[2018-08-25 15:26] LABS: INTERNATIONAL NORMALIZED RATIO 1.58 (0.93-1.1); PROTHROMBIN TIME 16.1 Seconds (9.6-11.5)
[2018-08-25] MEDS ORDERED: BUPIVACAINE 0.25% ONE (15:48)
[2018-08-25 16:00] LABS: MD YES
[2018-08-25] MEDS ORDERED: BUPIVACAINE/PF 0.5% INFIL ONE (16:00)
[2018-08-25] MEDS ORDERED: FUROSEMIDE 40 MG/4 ML IV ONE (16:00)
[2018-08-25 16:03] LABS: LYMPH#(MANUAL) 44.06 x10^3/uL (1-3.4); LYMPHS% (MANUAL) 89 % (22-44); MONOS#(MANUAL) 0.99 x10^3/uL (0.3-2.7); MONOS% (MANUAL) 2 % (2-9); SEG#(MANUAL) 4.46 x10^3/uL (1.8-6.8); SEGS% (MANUAL) 9 % (42-75)
[2018-08-25 16:04] LABS: <PLATELET ESTIMATE> ADEQUATE; ANISOCYTOSIS 1+
[2018-08-25 16:05] LABS: <PLT MORPHOLOGY> NORMAL PLT MORPH
[2018-08-25] MEDS ORDERED: ONDANSETRON 2MG/ML, 2ML IVPush PRN (18:00)
[2018-08-25] MEDS ORDERED: LIDOCAINE JELLY 2%, 30GM ONE (18:23)
[2018-08-25] MEDS ORDERED: FENTANYL PF 100 MCG/2ML ONE ×2 (18:24→19:00)
[2018-08-25] MEDS ORDERED: PROPOFOL 10 MG/ML, 20ML ONE (18:43)
[2018-08-25] MEDS ORDERED: SUCCINYLCHOLINE 20 MG/ML, 10ML ONE (18:43)
[2018-08-25] MEDS ORDERED: OXYcodone 5 MG/5 ML ORAL.SOL UDC PO PRN (19:00)
[2018-08-25] MEDS ORDERED: OXYcodone 5 MG/5 ML ORAL.SOL UDC ONE (19:00)
[2018-08-25] MEDS ORDERED: LABETALOL 5MG/ML, 20ML IV PRN (19:00)
[2018-08-25] MEDS ORDERED: ACETAMINOPHEN 650 MG/20.3 ML UDC ONE (19:00)
[2018-08-25] MEDS ORDERED: ONDANSETRON 2MG/ML, 2ML IV PRN (19:00)
[2018-08-25] MEDS ORDERED: FENTANYL PF 100 MCG/2ML IV PRN (19:00)
[2018-08-25] MEDS ORDERED: ALBUTEROL/IPRATROPIUM 2.5MG/0.5MG, 3 ML NPPB PRN (19:00)
[2018-08-25] MEDS ORDERED: ACETAMINOPHEN 325 MG TABLET PO PRN (19:00)
[2018-08-25 19:50] VITALS: BP 151/70
[2018-08-25 23:58] VITALS: BP 147/74
[2018-08-26] MEDS: ACETAMINOPHEN 325 MG TABLET PO PRN ×2 (03:56→19:57)
[2018-08-26 04:02] VITALS: BP 102/74
[2018-08-26 05:34] LABS: CALCIUM 8.1 mg/dL (8.5-10.1); CHLORIDE 109 mmol/L (98-107)
[2018-08-26 05:38] LABS: MEAN CORPUSCULAR HEMOGLOBIN 29.7 pg (27.0-34.8); MEAN CORPUSCULAR HGB CONC 32.3 g/dL (32.4-35.8); MEAN PLATELET VOLUME 7.9 fL (7.4-10.4); PLATELET COUNT 243 x10^3/uL (130-400); RED BLOOD COUNT 2.79 x10^6/uL (3.82-5.3); RED CELL DISTRIBUTION WIDTH 21.7 % (9.6-15.2)
[2018-08-26 05:40] LABS: ALANINE AMINOTRANSFERASE 70 U/L (12-78); ALBUMIN 1.9 g/dL (3.4-5.0); ALKALINE PHOSPHATASE 167 U/L (45-117); ANION GAP 5 mmol/L (5-15); BILIRUBIN,TOTAL 0.7 mg/dL (0.2-1.0); CREATININE 0.53 mg/dL (0.55-1.02); TOTAL PROTEIN 4.7 g/dL (6.4-8.2)
[2018-08-26 06:37] LABS: MD YES
[2018-08-26 06:48] VITALS: BP 142/72
[2018-08-26 07:20] LABS: <PLATELET ESTIMATE> ADEQUATE; <PLT MORPHOLOGY> NORMAL PLT MORPH; ANISOCYTOSIS 1+; BAND#(MANUAL) 0.72 x10^3/uL; BANDS%(MANUAL) 2 % (0-7); EOS#(MANUAL) 0.72 x10^3/uL (0.0-0.4); EOS% (MANUAL) 2 % (1-7); LYMPH#(MANUAL) 30.69 x10^3/uL (1-3.4); LYMPHS% (MANUAL) 85 % (22-44); POLYCHROMASIA 1+; SEG#(MANUAL) 3.97 x10^3/uL (1.8-6.8); SEGS% (MANUAL) 11 % (42-75)
[2018-08-26 15:31] VITALS: BP 127/59
[2018-08-26 18:25] VITALS: BP 102/56
[2018-08-27 02:24] VITALS: BP 129/66
[2018-08-27 05:07] LABS: ALBUMIN 1.8 g/dL (3.4-5.0); ANION GAP 7 mmol/L (5-15); CALCIUM 7.8 mg/dL (8.5-10.1); CHLORIDE 108 mmol/L (98-107); CREATININE 0.65 mg/dL (0.55-1.02)
[2018-08-27 06:49] VITALS: BP 148/55
[2018-08-27] MEDS: AMIODARONE 200 MG TABLET PO SCH (07:28)
[2018-08-27 14:21] VITALS: BP 138/62
[2018-08-27 18:45] VITALS: BP 147/52
[2018-08-28 00:35] VITALS: BP 149/60
[2018-08-28 06:39] VITALS: BP 156/76
[2018-08-28] MEDS: AMIODARONE 200 MG TABLET PO SCH (08:29)
[2018-08-28] MEDS ORDERED: DOCUSATE 100 MG CAPSULE PO PRN (11:30)
[2018-08-28] MEDS ORDERED: VANCOMYCIN 1,000 MG ONE (11:56)
[2018-08-28] MEDS ORDERED: KETOROLAC 60 MG/2 ML ONE (11:56)
[2018-08-28] MEDS ORDERED: ROPIvacaine/PF 0.2%, 20 ML ONE (11:56)
[2018-08-28] MEDS ORDERED: TRANEXAMIC ACID 100 MG/ML, 10ML ONE ×2 (11:56)
[2018-08-28] MEDS ORDERED: EPINEPHRINE 1 MG/ML, 1ML ONE (11:56)
[2018-08-28] MEDS ORDERED: FENTANYL PF 100 MCG/2ML ONE ×3 (12:03→14:12)
[2018-08-28] MEDS ORDERED: ONDANSETRON 2MG/ML, 2ML IV PRN (13:00)
[2018-08-28] MEDS ORDERED: ONDANSETRON ODT 8 MG PO PRN (13:00)
[2018-08-28] MEDS ORDERED: MORPHINE SULFATE 4 MG/ML, 1ML IVPush PRN (13:00)
[2018-08-28] MEDS ORDERED: PROMETHAZINE 25 MG/ML, 1ML IV PRN (13:00)
[2018-08-28] MEDS ORDERED: FENTANYL PF 100 MCG/2ML IV PRN (13:00)
[2018-08-28] MEDS ORDERED: ACETAMINOPHEN 325 MG TABLET PO PRN (13:00)
[2018-08-28] MEDS ORDERED: OXYcodone 5 MG/5 ML ORAL.SOL UDC PO PRN (13:00)
[2018-08-28] MEDS ORDERED: ROCURONIUM 10MG/ML,5ML ONE (13:11)
[2018-08-28] MEDS ORDERED: CEFAZOLIN 1,000 MG ONE (13:11)
[2018-08-28] MEDS ORDERED: NEOSTIGMINE 1 MG/ML, 10ML ONE (13:11)
[2018-08-28] MEDS ORDERED: GLYCOPYRROLATE 0.2MG/1ML, 5ML ONE (13:11)
[2018-08-28] MEDS ORDERED: DEXAMETHASONE 4 MG/ML, 1ML ONE (13:11)
[2018-08-28] MEDS ORDERED: ONDANSETRON 2MG/ML, 2ML ONE (13:11)
[2018-08-28] MEDS ORDERED: SUCCINYLCHOLINE 20 MG/ML, 10ML ONE (13:11)
[2018-08-28] MEDS ORDERED: PROPOFOL 10 MG/ML, 20ML ONE (13:11)
[2018-08-28] MEDS ORDERED: LABETALOL 5MG/ML, 20ML ONE (14:44)
[2018-08-28] MEDS ORDERED: LABETALOL 5MG/ML, 20ML IV PRN (15:00)
[2018-08-28] MEDS: METOPROLOL TARTRATE 25 MG TABLET PO SCH (18:00)
[2018-08-28] MEDS: CEFAZOLIN PMX 2GM/50ML 50 ML IVPB SCH (20:46)
[2018-08-29 00:08] VITALS: BP 133/69
[2018-08-29 03:04] VITALS: BP 131/70
[2018-08-29] MEDS: CEFAZOLIN PMX 2GM/50ML 50 ML IVPB SCH (04:29)
[2018-08-29] MEDS: METOPROLOL TARTRATE 25 MG TABLET PO SCH ×2 (04:31→18:09)
[2018-08-29 06:23] LABS: MEAN CORPUSCULAR HEMOGLOBIN 30.1 pg (27.0-34.8); MEAN CORPUSCULAR HGB CONC 32.5 g/dL (32.4-35.8); MEAN CORPUSCULAR VOLUME 92.7 fL (80-100); MEAN PLATELET VOLUME 7.5 fL (7.4-10.4); PLATELET COUNT 273 x10^3/uL (130-400); RED BLOOD COUNT 2.91 x10^6/uL (3.82-5.3); RED CELL DISTRIBUTION WIDTH 20.5 % (9.6-15.2)
[2018-08-29 06:30] LABS: ALANINE AMINOTRANSFERASE 38 U/L (12-78); ALBUMIN 1.9 g/dL (3.4-5.0); ANION GAP 6 mmol/L (5-15); CALCIUM 7.9 mg/dL (8.5-10.1); CHLORIDE 106 mmol/L (98-107); CREATININE 0.68 mg/dL (0.55-1.02)
[2018-08-29 06:32] LABS: ALKALINE PHOSPHATASE 155 U/L (45-117); BILIRUBIN,TOTAL 0.8 mg/dL (0.2-1.0)
[2018-08-29 06:45] LABS: MD YES
[2018-08-29 06:52] VITALS: BP 143/68
[2018-08-29 07:29] LABS: EOS#(MANUAL) 0.34 x10^3/uL (0.0-0.4); EOS% (MANUAL) 1 % (1-7); LYMPH#(MANUAL) 29.07 x10^3/uL (1-3.4); LYMPHS% (MANUAL) 85 % (22-44); SEG#(MANUAL) 4.79 x10^3/uL (1.8-6.8); SEGS% (MANUAL) 14 % (42-75)
[2018-08-29 07:30] LABS: <PLATELET ESTIMATE> ADEQUATE; <PLT MORPHOLOGY> NORMAL PLT MORPH; ANISOCYTOSIS 1+; POLYCHROMASIA 1+
[2018-08-29 07:31] LABS: SMUDGE CELLS 2+
[2018-08-29] MEDS: AMIODARONE 200 MG TABLET PO SCH (07:44)
[2018-08-29] MEDS: ACETAMINOPHEN 325 MG TABLET PO PRN ×2 (07:44→16:03)
[2018-08-29] MEDS: HEPARIN 5,000 UNITS/ML, 1ML SQ SCH ×2 (07:44→20:06)
[2018-08-29 12:23] VITALS: BP 139/64
[2018-08-29] MEDS ORDERED: ASPI-621 PO (15:01)
[2018-08-29] MEDS ORDERED: TRAM50TA2 PO (15:17)
[2018-08-29] MEDS ORDERED: MELO7.5T31 PO (15:17)
[2018-08-29] MEDS ORDERED: OXYC5CAP2 PO (15:17)
[2018-08-29 19:34] VITALS: BP 130/70
[2018-08-29] MEDS: ATORVASTATIN 10 MG TABLET PO SCH (20:06)
[2018-08-29 23:53] VITALS: BP 126/63
[2018-08-30 05:17] LABS: MEAN CORPUSCULAR HEMOGLOBIN 30.5 pg (27.0-34.8); MEAN CORPUSCULAR HGB CONC 32.9 g/dL (32.4-35.8); MEAN CORPUSCULAR VOLUME 92.8 fL (80-100); MEAN PLATELET VOLUME 8.4 fL (7.4-10.4); PLATELET COUNT 253 x10^3/uL (130-400); RED BLOOD COUNT 2.58 x10^6/uL (3.82-5.3); RED CELL DISTRIBUTION WIDTH 20.1 % (9.6-15.2)
[2018-08-30 05:32] LABS: ALBUMIN 1.8 g/dL (3.4-5.0); ANION GAP 5 mmol/L (5-15); CALCIUM 7.8 mg/dL (8.5-10.1); CHLORIDE 107 mmol/L (98-107)
[2018-08-30] MEDS: METOPROLOL TARTRATE 25 MG TABLET PO SCH ×2 (05:32→19:11)
[2018-08-30 05:37] LABS: ALANINE AMINOTRANSFERASE 20 U/L (12-78); ALKALINE PHOSPHATASE 146 U/L (45-117); BILIRUBIN,TOTAL 0.9 mg/dL (0.2-1.0); CHOL/HDL RATIO 6.5; CHOLESTEROL, TOTAL 130 mg/dL (140-239); CREATININE 0.52 mg/dL (0.55-1.02); HDL CHOL % 15 % (28-40); HDL CHOLESTEROL (DIRECT) 20 mg/dL (40-60); LDL CHOLESTEROL,CALCULATED 86 mg/dL (54-169); LDL/HDL RATIO 4.3 (0.5-3.0); TRIGLYCERIDES 119 mg/dL (50-200); VLDL CHOLESTEROL 24 mg/dL (0-25)
[2018-08-30 05:51] LABS: MD YES
[2018-08-30 06:12] LABS: ANISOCYTOSIS 1+; EOS#(MANUAL) 0.31 x10^3/uL (0.0-0.4); EOS% (MANUAL) 1 % (1-7); HYPOCHROMIA 1+; LYMPH#(MANUAL) 25.48 x10^3/uL (1-3.4); LYMPHS% (MANUAL) 83 % (22-44); MONOS#(MANUAL) 0.92 x10^3/uL (0.3-2.7); MONOS% (MANUAL) 3 % (2-9); SEG#(MANUAL) 3.99 x10^3/uL (1.8-6.8); SEGS% (MANUAL) 13 % (42-75)
[2018-08-30 06:13] LABS: <PLATELET ESTIMATE> ADEQUATE; <PLT MORPHOLOGY> NORMAL PLT MORPH; POLYCHROMASIA 1+
[2018-08-30 06:43] LABS: SMUDGE CELLS 2+
[2018-08-30 07:09] VITALS: BP 153/71
[2018-08-30] MEDS: AMIODARONE 200 MG TABLET PO SCH (08:38)
[2018-08-30] MEDS: HEPARIN 5,000 UNITS/ML, 1ML SQ SCH ×2 (08:39→19:20)
[2018-08-30] MEDS ORDERED: ASPIRIN 81 MG TABLET EC PO SCH (09:00)
[2018-08-30 12:03] VITALS: BP 147/64
[2018-08-30 12:36] LABS: INTERNATIONAL NORMALIZED RATIO 1.1 (0.93-1.1); PROTHROMBIN TIME 11.3 Seconds (9.6-11.5)
[2018-08-30] MEDS ORDERED: WARFARIN 5 MG TABLET PO-COUM ONE (18:00)
[2018-08-30 19:14] VITALS: BP 148/77
[2018-08-30] MEDS: ATORVASTATIN 10 MG TABLET PO SCH (19:20)
[2018-08-31 00:36] VITALS: BP 139/49
[2018-08-31] MEDS: METOPROLOL TARTRATE 25 MG TABLET PO SCH ×2 (04:49→17:32)
[2018-08-31 05:28] LABS: MEAN CORPUSCULAR HEMOGLOBIN 30.2 pg (27.0-34.8); MEAN CORPUSCULAR HGB CONC 32.4 g/dL (32.4-35.8); MEAN CORPUSCULAR VOLUME 93.2 fL (80-100); MEAN PLATELET VOLUME 8.3 fL (7.4-10.4); PLATELET COUNT 246 x10^3/uL (130-400); RED BLOOD COUNT 2.37 x10^6/uL (3.82-5.3); RED CELL DISTRIBUTION WIDTH 20.5 % (9.6-15.2)
[2018-08-31 05:30] LABS: INTERNATIONAL NORMALIZED RATIO 1.1 (0.93-1.1); PROTHROMBIN TIME 11.3 Seconds (9.6-11.5)
[2018-08-31 06:01] LABS: MD YES
[2018-08-31 06:02] LABS: EOS#(MANUAL) 0.28 x10^3/uL (0.0-0.4); EOS% (MANUAL) 1 % (1-7); LYMPH#(MANUAL) 24.48 x10^3/uL (1-3.4); LYMPHS% (MANUAL) 89 % (22-44); SEG#(MANUAL) 2.75 x10^3/uL (1.8-6.8); SEGS% (MANUAL) 10 % (42-75)
[2018-08-31 06:03] LABS: <PLATELET ESTIMATE> ADEQUATE; <PLT MORPHOLOGY> NORMAL PLT MORPH; ANISOCYTOSIS 1+; HYPOCHROMIA 1+; POLYCHROMASIA 1+; SMUDGE CELLS 2+
[2018-08-31 07:14] VITALS: BP 143/56
[2018-08-31] MEDS: AMIODARONE 200 MG TABLET PO SCH (09:06)
[2018-08-31] MEDS: HEPARIN 5,000 UNITS/ML, 1ML SQ SCH ×2 (09:06→20:23)
[2018-08-31 14:11] VITALS: BP 139/59
[2018-08-31 15:15] LABS: RED BLOOD COUNT 2.6 x10^6/uL (3.82-5.3)
[2018-08-31 16:46] LABS: RETICULOCYTE COUNT % 3.53 % (0.5-1.5)
[2018-08-31 16:47] LABS: ABSOLUTE RETICS # 0.092 x10^6/uL (0.5-2.5)
[2018-08-31] MEDS ORDERED: WARFARIN 5 MG TABLET PO-COUM SCH (18:00)
[2018-08-31 19:55] VITALS: BP 133/66
[2018-08-31] MEDS: ATORVASTATIN 10 MG TABLET PO SCH (20:23)
[2018-09-01 03:14] VITALS: BP 130/71
[2018-09-01 04:52] LABS: INTERNATIONAL NORMALIZED RATIO 1.4 (0.93-1.1); PROTHROMBIN TIME 14.3 Seconds (9.6-11.5)
[2018-09-01 04:54] LABS: ANION GAP 6 mmol/L (5-15); CALCIUM 7.6 mg/dL (8.5-10.1); CHLORIDE 110 mmol/L (98-107); CREATININE 0.56 mg/dL (0.55-1.02)
[2018-09-01 05:02] LABS: MEAN CORPUSCULAR HEMOGLOBIN 30.2 pg (27.0-34.8); MEAN CORPUSCULAR HGB CONC 32.7 g/dL (32.4-35.8); MEAN CORPUSCULAR VOLUME 92.4 fL (80-100); MEAN PLATELET VOLUME 8.4 fL (7.4-10.4); PLATELET COUNT 272 x10^3/uL (130-400); RED BLOOD COUNT 2.42 x10^6/uL (3.82-5.3); RED CELL DISTRIBUTION WIDTH 19.9 % (9.6-15.2)
[2018-09-01 05:27] LABS: MD YES
[2018-09-01 05:28] LABS: EOS#(MANUAL) 0.31 x10^3/uL (0.0-0.4); EOS% (MANUAL) 1 % (1-7); LYMPH#(MANUAL) 24.49 x10^3/uL (1-3.4); LYMPHS% (MANUAL) 79 % (22-44); SEGS% (MANUAL) 20 % (42-75)
[2018-09-01 05:29] LABS: <PLATELET ESTIMATE> ADEQUATE; <PLT MORPHOLOGY> NORMAL PLT MORPH; ANISOCYTOSIS 1+; HYPOCHROMIA 1+; POLYCHROMASIA 1+; SMUDGE CELLS 2+
[2018-09-01] MEDS: METOPROLOL TARTRATE 25 MG TABLET PO SCH (05:54)
[2018-09-01 07:00] VITALS: BP 148/63
[2018-09-01] MEDS: AMIODARONE 200 MG TABLET PO SCH (08:22)
[2018-09-01] MEDS: HEPARIN 5,000 UNITS/ML, 1ML SQ SCH (08:22)
[2018-09-01] MEDS ORDERED: WARF5TAB PO-COUM (10:32)
[2018-09-01] MEDS ORDERED: PIPERACILLIN/TAZO/PMX 4.5GM 100 ML IV SCH (11:00)
[2018-09-01] MEDS ORDERED: FERROUS SULFATE 220 MG/5 ML ORAL SOL PO SCH (11:00)
[2018-09-01 13:29] VITALS: BP 124/64
[2018-09-01] MEDS ORDERED: WARFARIN 5 MG TABLET PO-COUM SCH (18:00)
== END 2018-09-01 14:00 | DRG 466 ==
LOC: OR 17:10 → EDIP 17:11 → SUATTDRO 17:35 → OR 17:36 → 4NOR 19:40 → 4EST 08-29 16:46
PROVIDERS: ADMIT Hospitalist; ATTEND Hospitalist
PROC: 3E0T3BZ Introduction of Anesthetic Agent into Peripheral Nerves and Plexi, Percutaneous Approach (ICD-10-PCS; 2018-08-25)
PROC: 0SSBXZZ Reposition Left Hip Joint, External Approach (ICD-10-PCS; 2018-08-25)
PROC: 0SPB0JZ Removal of Synthetic Substitute from Left Hip Joint, Open Approach (ICD-10-PCS; 2018-08-28)
PROC: 0SRB06Z Replacement of Left Hip Joint with Oxidized Zirconium on Polyethylene Synthetic Substitute, Open Approach (ICD-10-PCS; principal; 2018-08-28 13:00)
DX: T84.021A Dislocation of internal left hip prosthesis, initial encounter (principal); E43 Unspecified severe protein-calorie malnutrition; J18.1 Lobar pneumonia, unspecified organism; C91.10 Chronic lymphocytic leukemia of B-cell type not having achieved remission; J96.10 Chronic respiratory failure, unspecified whether with hypoxia or hypercapnia; Y83.8 Other surgical procedures as the cause of abnormal reaction of the patient, or of later complication, without mention of misadventure at the time of the procedure; F03.90 Unspecified dementia, unspecified severity, without behavioral disturbance, psychotic disturbance, mood disturbance, and anxiety; I11.0 Hypertensive heart disease with heart failure; R29.810 Facial weakness; R47.1 Dysarthria and anarthria; I48.2 Chronic atrial fibrillation; D50.9 Iron deficiency anemia, unspecified; I50.9 Heart failure, unspecified; Y79.2 Prosthetic and other implants, materials and accessory orthopedic devices associated with adverse incidents; E78.00 Pure hypercholesterolemia, unspecified; E78.5 Hyperlipidemia, unspecified; I25.2 Old myocardial infarction; Y92.89 Other specified places as the place of occurrence of the external cause; Z86.73 Personal history of transient ischemic attack (TIA), and cerebral infarction without residual deficits; Z79.01 Long term (current) use of anticoagulants; Z87.891 Personal history of nicotine dependence; Z95.0 Presence of cardiac pacemaker; Z99.81 Dependence on supplemental oxygen; Z68.28 Body mass index [BMI] 28.0-28.9, adult
CPT/HCPCS: 27265; 36415; 70450; 71045; 72170; 76000; 80048; 80053; 80061; 82040; 82728; 83010; 83540; 83550; 83880; 85014; 85018; 85025; 85045; 85610; 86850; 86900; 93306; 93880; C1713; G0378; J0171; J0690; J1100; J1644; J1885; J2405; J2543; J2704; J2710; J2795; J3010; J3370; J3490; 92523-GN; C1776; J0330

== ENCOUNTER → 2020-05-07 | Outpatient (CLI) | payer MEDICARE ==
[~2020-05-07] MED LIST changes: +ASPI81TA45 PO; +LOSA100T14 PO; -LOSA100T7 PO; +MELO7.5T31 PO; +OXYC5CAP2 PO; +TRAM50TA2 PO; +VERA240T10 PO; -VERA240T86 PO; +WARF5TAB2 PO-COUM
== END | disposition home or self-care (01) ==
LOC: CVU 07:37
PROVIDERS: ATTEND Internal Medicine Cardiovascular Disease
DX: I08.1 Rheumatic disorders of both mitral and tricuspid valves (principal); I10 Essential (primary) hypertension
CPT/HCPCS: 93306